=== PATIENT | male | born 1985 | race Caucasian/White ===

== ENCOUNTER 2018-06-17 18:32 | Emergency (ER) | payer BC, OTHER, MEDICAID ==
[2018-06-17] MEDS: METOCLOPRAMIDE 10 MG INJ IV (19:36)
[2018-06-17] MEDS: DIPHENHYDRAMINE 50 MG INJ IV (19:36)
== END 2018-06-17 20:43 | disposition home or self-care (01) ==
LOC: FTE 20:43
DX: R51 Headache (principal)
CPT/HCPCS: 96374; 96375; 99284-25

== ENCOUNTER 2019-07-19 10:33 | Emergency (ER) | payer OTHER, BC ==
[2019-07-19] MEDS: ONDANSETRON (ODT) 4 MG TAB ODT (12:24)
[2019-07-19] MEDS: KETOROLAC 30 MG INJ IM (12:24)
== END 2019-07-19 12:55 | disposition home or self-care (01) ==
LOC: FTE 12:55
DX: R51 Headache (principal); R11.2 Nausea with vomiting, unspecified
CPT/HCPCS: 93005; 96372; 99284-25